=== PATIENT | female | born 1990 | race Caucasian/White ===

== ENCOUNTER 2024-02-12 14:48 | Emergency (ER) | payer MEDICAID ==
[~2024-02-12] VITALS: Ht 165.1 cm; Wt 83.5 kg
[2024-02-12 14:58] VITALS: BP 124/81; PULSE 84; RESP 18; TEMP 97.8; O2SAT 97
== END 2024-02-12 21:18 | disposition left against medical advice (07) ==
LOC: ER 14:49
DX: K92.1 Melena (principal); Z53.21 Procedure and treatment not carried out due to patient leaving prior to being seen by health care provider
CPT/HCPCS: 99281